=== PATIENT | male | born 1960 | race Caucasian/White ===

== ENCOUNTER 2017-03-13 06:29 | Emergency (ER) | payer OTHER, MEDICAID ==
[~2017-03-13] VITALS: Ht 180.3 cm; Wt 70.0 kg
[2017-03-13 09:24] LABS: BASOPHILS % 0.7 % (0.0-2.0); EOSINOPHILS % 1.1 % (0.0-5.0); HEMATOCRIT. 41.2 % (42.0-52.0); HEMOGLOBIN. 13.7 g/dL (14.0-18.0); LYMPHOCYTES % 21.8 % (20.0-50.0); MEAN CORPUSCULAR VOLUME 87.3 fL (80.0-94.0); MEAN PLATELET VOLUME 7.3 fl (7.4-10.4); MONOCYTES % 8.4 % (2.0-8.0); PLATELET 321 x1000/uL (130-400); RED BLOOD CELL COUNT 4.72 mill/uL (4.7-6.1); RED CELL DISTRIBUTION WIDTH 13.4 % (11.6-14.6)
[2017-03-13 09:30] LABS: CHLORIDE 105 mEq/L (98-107)
[2017-03-13 09:39] LABS: ETHANOL BLOOD < 10 mg/dL
[2017-03-14 10:30] VITALS: BP 122/77
== END 2017-03-14 11:38 | disposition left against medical advice (07) ==
LOC: ER 06:29
DX: F10.129 Alcohol abuse with intoxication, unspecified (principal); G35 Multiple sclerosis; G93.89 Other specified disorders of brain; F14.10 Cocaine abuse, uncomplicated; F12.90 Cannabis use, unspecified, uncomplicated; F17.210 Nicotine dependence, cigarettes, uncomplicated; Z99.3 Dependence on wheelchair; Z59.0 Homelessness
CPT/HCPCS: 36415; 70450; 80053; 85025; 99285; G0482